=== PATIENT | female | born 1955 | race Caucasian/White ===

== ENCOUNTER → 2017-12-11 | Outpatient (CLI) | payer OTHER | END | disposition home or self-care (01) | LOC: CFH 12:34 | PROVIDERS: ATTEND Nurse Practitioner | DX: R92.8 Other abnormal and inconclusive findings on diagnostic imaging of breast (principal); N63.20 Unspecified lump in the left breast, unspecified quadrant | CPT/HCPCS: 77066 ==

== ENCOUNTER → 2017-12-15 | Outpatient (CLI) | payer OTHER ==
[~2017-12-15] MED LIST: LIDOCAINE 1%-EPI 1:100K, 30ML ONE; SODIUM BICARBONATE 4.0%, 5ML ONE
== END | disposition home or self-care (01) ==
LOC: CFH 10:00
PROVIDERS: ATTEND Nurse Practitioner
DX: C50.412 Malignant neoplasm of upper-outer quadrant of left female breast (principal)
CPT/HCPCS: 19083; 77065; 88305; J3490

== ENCOUNTER 2018-01-15 09:20 | Day surgery (SDC) | payer OTHER ==
[2018-01-12 12:18] VITALS: BP 124/80
[2018-01-12 12:39] LABS: ALANINE AMINOTRANSFERASE 58 U/L (12-78); ALBUMIN 3.5 g/dL (3.4-5.0); ANION GAP 6 mmol/L (5-15); CALCIUM 8.3 mg/dL (8.5-10.1); CHLORIDE 99 mmol/L (98-107); CREATININE 0.55 mg/dL (0.55-1.02)
[2018-01-12 12:41] LABS: ALKALINE PHOSPHATASE 112 U/L (45-117); BILIRUBIN,TOTAL 1.2 mg/dL (0.2-1.0); TOTAL PROTEIN 7.1 g/dL (6.4-8.2)
[~2018-01-15] VITALS: Ht 170.2 cm; Wt 67.0 kg
[~2018-01-15 09:20] MED LIST changes: +AMLO10TA2 PO; +ASPI-496 PO; +ATOR20TA PO; +BENA20TA4 PO; +CHOL10003 PO; +CYAN1TAB29 PO; +FISH OIL PO; +FOLIC ACID PO; +LIDOCAINE 1%-EPI 1:100K, 20ML ONE; -LIDOCAINE 1%-EPI 1:100K, 30ML ONE; +METF10003 PO; +OMEP20TA62 PO; +POTASSIUM PO; -SODIUM BICARBONATE 4.0%, 5ML ONE
[2018-01-15] MEDS ORDERED: LACTATED RINGERS 1,000 ML IV SCH (11:40)
[2018-01-15] MEDS ORDERED: LIDOCAINE-MPF 1%, 5ML ONE (11:56)
[2018-01-15] MEDS ORDERED: LIDOCAINE-MPF 1%, 2ML INFIL ONE (12:00)
[2018-01-15] MEDS ORDERED: APREPITANT 40 MG CAPSULE PO ONE (12:00)
[2018-01-15] MEDS ORDERED: EPINEPHRINE 1 MG/ML, 1ML ONE (12:40)
[2018-01-15] MEDS ORDERED: BUPIVACAINE/PF 0.5% ONE (12:40)
[2018-01-15] MEDS ORDERED: CEFAZOLIN 1,000 MG ONE (15:34)
[2018-01-15] MEDS ORDERED: SUCCINYLCHOLINE 20 MG/ML, 10ML ONE (15:34)
[2018-01-15] MEDS ORDERED: ISOSULFAN BLUE 10 MG/ML, 5ML IV ONE (15:52)
[2018-01-15] MEDS ORDERED: PROPOFOL 50 ML ONE (15:56)
[2018-01-15] MEDS ORDERED: FENTANYL PF 100 MCG/2ML ONE (16:09)
[2018-01-15] MEDS ORDERED: SUGAMMADEX 200 MG/2 ML IVPush ONE (16:25)
[2018-01-15] MEDS ORDERED: ACETAMINOPHEN 325 MG TABLET PO PRN (16:30)
[2018-01-15] MEDS ORDERED: HYDROmorphone 1 MG/ML, 1ML IV PRN (16:30)
[2018-01-15] MEDS ORDERED: ALBUTEROL HFA 90 MCG/SPRAY ONE (16:30)
[2018-01-15] MEDS ORDERED: FENTANYL PF 100 MCG/2ML IV PRN (16:30)
[2018-01-15] MEDS ORDERED: HYDROcodone/APAP 7.5-325MG/15ML UDC PO PRN (16:30)
[2018-01-15] MEDS ORDERED: MORPHINE SULFATE 4 MG/ML, 1ML IVPush PRN ×2 (16:30→18:00)
[2018-01-15] MEDS ORDERED: MEPERIDINE/PF 25MG/0.5ML IVPush PRN (16:30)
[2018-01-15] MEDS ORDERED: OXYcodone 5 MG/5 ML ORAL.SOL UDC PO PRN (16:30)
[2018-01-15] MEDS ORDERED: ALBUTEROL/IPRATROPIUM 2.5MG/0.5MG, 3 ML ONE (16:47)
[2018-01-15] MEDS ORDERED: ALBUTEROL/IPRATROPIUM 2.5MG/0.5MG, 3 ML NEB ONE (17:00)
[2018-01-15] MEDS ORDERED: OXYcodone 5 MG/5 ML ORAL.SOL UDC ONE (17:00)
[2018-01-15] MEDS ORDERED: HYDROcodone/APAP 5/325 TABLET PO PRN (18:00)
[2018-01-15 19:14] VITALS: BP 103/64
[2018-01-15] MEDS ORDERED: ATORVASTATIN 20 MG TABLET PO SCH (21:00)
[2018-01-16] MEDS ORDERED: ASPIRIN 81 MG TABLET EC PO SCH (06:00)
[2018-01-16] MEDS ORDERED: OMEPRAZOLE 20 MG CAPSULE.DR PO SCH (07:30)
[2018-01-16] MEDS ORDERED: metFORMIN 500 MG TABLET PO SCH (08:00)
[2018-01-16] MEDS ORDERED: FOLIC ACID 1 MG TABLET PO SCH (09:00)
[2018-01-16] MEDS ORDERED: CYANOCOBALOMIN 100MCG TABLET PO SCH (09:00)
[2018-01-16] MEDS ORDERED: CHOLECALCIFEROL 1,000 UNIT TABLET PO SCH (09:00)
[2018-01-16] MEDS ORDERED: OMEGA-3/FISH OIL CAPSULE PO SCH (09:00)
[2018-01-16] MEDS ORDERED: AMLODIPINE 5 MG TABLET PO SCH (09:00)
[2018-01-16] MEDS ORDERED: BENAZEPRIL 20 MG TABLET PO SCH (09:00)
[2018-01-16] MEDS ORDERED: POTASSIUM CHLORIDE 8 MEQ TABLET.ER PO SCH (09:00)
== END 2018-01-15 21:05 | disposition home or self-care (01) ==
LOC: SDC 09:20 → EDSTATUS 15:00 → 4NOR 17:49 → OUT 21:05
PROVIDERS: ATTEND Surgery
DX: C50.912 Malignant neoplasm of unspecified site of left female breast (principal); R59.1 Generalized enlarged lymph nodes; F17.210 Nicotine dependence, cigarettes, uncomplicated; E11.9 Type 2 diabetes mellitus without complications; I10 Essential (primary) hypertension; Z90.49 Acquired absence of other specified parts of digestive tract; Z79.82 Long term (current) use of aspirin; Z98.890 Other specified postprocedural states; Z72.89 Other problems related to lifestyle; Z79.899 Other long term (current) drug therapy
CPT/HCPCS: 19125; 19281; 36415; 38525; 38792; 80053; 82962; 88307; 93005; 94640; A9541; J0171; J0330; J0690; J2704; J3010; J3490; J7120; J7620; J8501

== ENCOUNTER → 2018-02-19 | Outpatient (CLI) | payer OTHER ==
[~2018-02-19] MED LIST changes: -AMLO10TA2 PO; +AMLO10TA6 PO; -LIDOCAINE 1%-EPI 1:100K, 20ML ONE; -METF10003 PO; +METF10007 PO
== END | disposition home or self-care (01) ==
LOC: ROC 08:15
PROVIDERS: ATTEND Radiology Radiation Oncology
DX: C50.412 Malignant neoplasm of upper-outer quadrant of left female breast (principal); E11.9 Type 2 diabetes mellitus without complications; F17.210 Nicotine dependence, cigarettes, uncomplicated; Z88.1 Allergy status to other antibiotic agents
CPT/HCPCS: 99214; G0463

== ENCOUNTER → 2018-03-15 | Outpatient (CLI) | payer OTHER | END | disposition home or self-care (01) | LOC: ROC 07:52 | PROVIDERS: ATTEND Radiology Radiation Oncology | DX: C50.912 Malignant neoplasm of unspecified site of left female breast (principal) | CPT/HCPCS: 99213; G0463 ==

== ENCOUNTER 2018-06-07 07:52 | Outpatient (CLI) | payer OTHER ==
[~2018-06-07 07:52] MED LIST changes: -AMLO10TA6 PO; +AMLO10TA8 PO
== END 2018-06-07 23:59 | disposition home or self-care (01) ==
LOC: ROC 07:52
PROVIDERS: ATTEND Radiology Radiation Oncology
DX: C50.112 Malignant neoplasm of central portion of left female breast (principal)
CPT/HCPCS: 99213; G0463

== ENCOUNTER → 2018-07-09 | Outpatient (CLI) | payer OTHER ==
[~2018-07-09] MED LIST changes: -BENA20TA4 PO; +BENA20TA54 PO
== END | disposition home or self-care (01) ==
LOC: CFH 09:34
PROVIDERS: ATTEND Internal Medicine Hematology & Oncology
DX: M85.88 Other specified disorders of bone density and structure, other site (principal); Z85.3 Personal history of malignant neoplasm of breast
CPT/HCPCS: 77080

== ENCOUNTER → 2018-08-31 | Outpatient (CLI) | payer OTHER | END | disposition home or self-care (01) | LOC: CFH 10:57 | PROVIDERS: ATTEND Radiology Radiation Oncology | DX: Z12.2 Encounter for screening for malignant neoplasm of respiratory organs (principal); J43.9 Emphysema, unspecified; J98.4 Other disorders of lung; R91.1 Solitary pulmonary nodule; I25.10 Atherosclerotic heart disease of native coronary artery without angina pectoris; I35.8 Other nonrheumatic aortic valve disorders; I10 Essential (primary) hypertension; E11.9 Type 2 diabetes mellitus without complications; F17.210 Nicotine dependence, cigarettes, uncomplicated; Z85.3 Personal history of malignant neoplasm of breast | CPT/HCPCS: G0297 ==

== ENCOUNTER → 2018-12-17 | Outpatient (CLI) | payer OTHER | END | disposition home or self-care (01) | LOC: CFH 11:08 | PROVIDERS: ATTEND Radiology Radiation Oncology | DX: Z12.31 Encounter for screening mammogram for malignant neoplasm of breast (principal) | CPT/HCPCS: 77063; 77067 ==

== ENCOUNTER 2019-01-07 12:42 | Outpatient (CLI) | payer OTHER | END 2019-01-07 23:59 | disposition home or self-care (01) | LOC: CFH 12:42 | PROVIDERS: ATTEND Internal Medicine Hematology & Oncology | DX: J98.11 Atelectasis (principal); J84.10 Pulmonary fibrosis, unspecified | CPT/HCPCS: 71250 ==

== ENCOUNTER 2019-12-23 09:24 | Outpatient (CLI) | payer OTHER | END 2019-12-23 23:59 | disposition home or self-care (01) | LOC: CFH 09:24 → EDSTATUS 09:45 → CFH 23:59 | PROVIDERS: ATTEND Internal Medicine Hematology & Oncology | DX: Z12.31 Encounter for screening mammogram for malignant neoplasm of breast (principal); C50.812 Malignant neoplasm of overlapping sites of left female breast | CPT/HCPCS: 77063; 77067 ==

== ENCOUNTER → 2020-07-13 | Outpatient (CLI) | payer OTHER ==
[~2020-07-13] MED LIST changes: +AMLO-211 PO; -AMLO10TA8 PO
== END | disposition home or self-care (01) ==
LOC: CFH 10:12
PROVIDERS: ATTEND Internal Medicine Hematology & Oncology
DX: C50.812 Malignant neoplasm of overlapping sites of left female breast (principal); M81.0 Age-related osteoporosis without current pathological fracture; M85.89 Other specified disorders of bone density and structure, multiple sites
CPT/HCPCS: 77080

== ENCOUNTER → 2021-01-04 | Outpatient (CLI) | payer OTHER | END | disposition home or self-care (01) | LOC: CFH 12:00 | PROVIDERS: ATTEND Internal Medicine Hematology & Oncology | DX: Z12.31 Encounter for screening mammogram for malignant neoplasm of breast (principal) | CPT/HCPCS: 77067 ==